=== PATIENT | female | born 1990 | race Caucasian/White ===

== ENCOUNTER 2019-08-01 19:10 | Inpatient (IN) | payer OTHER, SELFPAY ==
[2019-08-01 19:28] VITALS: BMI 28.5
--- NOTE | 2019-08-01 20:06 | PCM.HP.OB ---
- Problem List (1) demise Status: Acute (2) Multiparous Status: Acute History Date of Admission: 08/01/19 Final ERIN: 12/16/19 Gestational age: 20 Weeks and 3 Days History of this : This is a 29 year-old, G 4, P 2011, at 20 weeks gestational age who presents to labor and delivery for scheduled induction of labor for demise. She had an anatomy ultrasound 5 days ago and a demise was noted with a fetus measuring approximately 16 weeks and 4 days. No ctx, lof. +Spotting. 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 Chronic constipation K59.09 Surgical History: Surgical History (Last Updated 08/01/19 @ 20:09 by Lori Corrales DO) History of D&C Z98.890 History of section Z98.891 History of foot surgery Z98.890 History of knee surgery Z98.890 Hx of breast reduction, elective Z98.890 Allergies No Known Allergies Allergy (Verified 08/01/19 19:41) Smoking Status: Never smoker History Past Pregnancies: Past Pregnancies Delivery Date Name GA/ Weeks Outcome Route Wt Infant Sex Labor Length Anesthesia Delivery Location Provider FOB Review of Systems Gynecological: Reports: Vaginal bleeding Physical Exam General: Alert, No apparent distress HEENT: Atraumatic Abdomen: Soft, Non Tender Extremities:: No edema Neurological: Neuro grossly intact Assessment/Plan All Active Problems demise (Acute) Multiparous (Acute) This is a 29 year-old, G 4, P 2011, at 20 weeks gestational age presents for a scheduled induction of labor for demise. - TAUS confirming demise on admission - Cytotec induction - Counseling provided and all questions answered - Discussed IV pain medication or an epidural for pain control as needed per pt request
[2019-08-01] MEDS: 0.9% Normal Saline 1,000 ML 150 ML IV (20:10)
[2019-08-01 20:32] LABS: Absolute Lymphocyte Count 2.84 X10^3/uL (0.83-4.51); Absolute Neutrophil Count 7.4 X10^3/uL (2.0-7.7); Basophil# 0.03 X10^3/uL; Basophil% 0.3 % (0-1); Eosinophil# 0.14 X10^3/uL; Eosinophils% 1.3 % (0-5); Hematocrit 42.1 % (37-47); Hemoglobin 14.3 g/dL (12.0-15.0); Lymphocyte # 2.84 X10^3/ul (4.0); Lymphocyte % 25.8 % (19-41); Mean Corpuscular Hgb 31.8 pg (27.0-32.0); Mean Corpuscular Volume 93.6 fL (81-99); Mean Platelet Vol. 9.1 fl (6.2-12.0); Monocyte# 0.53 X10^3/uL; Monocyte% 4.8 % (0-10); NRBC Flagged by Analyzer 0 % (0-5); Neutrophil # 7.41 X10^3/uL (2.7-7.7); Neutrophil % 67.2 % (47-70); Platelet Count 352 K/mm3 (150-450); RBC Distribution Width CV 13.4 % (11.6-14.6); RBC Distribution Width SD 46.4 fl (35.1-43.9)
[2019-08-01] MEDS: miSOPROStol 200 MCG Tablet VAGINAL (21:32)
[2019-08-02] MEDS: miSOPROStol 200 MCG Tablet VAGINAL ×2 (01:34→05:51)
[2019-08-02] MEDS: 0.9% Normal Saline 1,000 ML 150 ML IV ×2 (01:34→07:59)
[2019-08-02] MEDS: Acetaminophen 325 MG Tablet 650 MG PO (06:00)
--- NOTE | 2019-08-02 08:06 | PCM.PN.BLA ---
Progress Note Seen at bedside evaluated. Patient reports some lower pelvic cramping. Vaginal exam was performed parts in the vagina. We will continue induction for demise at this time. Patient does not require any pain medication. Discussed with the nursing staff and with the patient that once fetus is delivered patient can hold fetus and we will await for spontaneous placental separation Pitocin will be started as soon as fetus is delivered.
[2019-08-02] MEDS: Oxytocin 30 units/NS 500 ml 30 UNITS/500 ML IV.SOLN 334 UNITS IV (09:15)
--- NOTE | 2019-08-02 09:31 | PCM.OPRPT ---
Vaginal Delivery Maternal Presentation: Medically Indicated Induction, - - demise 16+ weeks Method of Induction: Cytotec Medical Reason for Induction: demise Final ERIN: 12/16/19 Gestational age: 20 Weeks and 4 Days Date of Procedure: 08/02/19 Pre-Operative Diagnosis: demise 16+ weeks Post-Operative Diagnosis: same Surgery/ Procedure Performed: Spontaneous Vaginal Delivery Type of Anesthesia: None Description of Procedure: pt delivered without complication- pt delivered encaul. Placenta and Amniotic sac were intact. VE performed- minimal bleeding, no signs of retained POC. No lacerations appreciated. Pt reports pain well controlled. Placental Delivery Description: Spontaneous Placenta [facility]position: [facility] Estimated Blood Loss: 25 A gender: Male Episiotomy Description: None Laceration: None Medications given after delivery: IV Pitocin Complications: None
--- NOTE | 2019-08-02 09:35 | DCINST_ITS ---
Discharge Diet: No Restrictions Discharge Activity: Return to Normal Activity, May not drive while taking narcotic pain medications., May Shower May resume sexual activity in: 4 weeks Additional Activity Instructions:: Nothing in the vagina for 4-6 weeks. You may return to work/school in 6 weeks. Call your doctor if your incision/area has: Continuous Slow Oozing, Sudden Increased Bleeding, Increased Pain/ Swelling, Increased Redness, Foul Smelling Discharge Call your doctor if you observe: Fever of 101 or Higher, Using more than one pad per hour Additional Instructions: If you experience any of the following, contact your healthcare provider. * Bleeding that soaks a pad every hour for 2 hours * Fever 100.4 or higher * Unrelieved incision or abdominal pain * Swelling, redness, discharge or bleeding from your incision or episiotomy site * Your incision begins to separate * Problems urinating (including inability to urinate or burning while urinating). * Visual changes * Severe headache * Flu-like symptoms * Pain or redness in one of both of your breasts * Pain, warmth, tenderness or swelling in your legs, especially the calf area * Frequent nausea and vomiting * Symptoms of depression or anxiety If you experience any of the following, call 911 or go to the nearest Emergency Room. * Chest pain * Problems breathing * Seizure activity * Partial or complete paralysis of a body part, slurred speech, weakness or drooping of the face, or a sudden inability to walk or hold your balance Allergies/Adverse Reactions: Allergies No Known Allergies Allergy (Verified 08/01/19 19:41) Medications to take at Discharge Ibuprofen [Motrin] 600 mg PO Q6H PRN PRN #60 tab 08/02/19 The following prescriptions were given: Ibuprofen [Motrin] 600 mg PO Q6H PRN PRN #60 tab PRN Reason: Pain Or Fever Transmission Status: [id number] When: office will contact you for an appointment in 1-2 weeks. [phone] Primary Care Physician: Care Physician,No Primary [Primary Care Provider] - Test Results: Test results from this visit will be discussed in further detail at your follow- up appointment, if applicable.
--- NOTE | 2019-08-02 09:35 | PCM.DCVAG ---
Discharge Diet: No Restrictions Discharge Activity: Return to Normal Activity, May not drive while taking narcotic pain medications., May Shower May resume sexual activity in: 4 weeks Additional Activity Instructions:: Nothing in the vagina for 4-6 weeks. You may return to work/school in 6 weeks. Call your doctor if your incision/area has: Continuous Slow Oozing, Sudden Increased Bleeding, Increased Pain/ Swelling, Increased Redness, Foul Smelling Discharge Call your doctor if you observe: Fever of 101 or Higher, Using more than one pad per hour Additional Instructions: If you experience any of the following, contact your healthcare provider. Bleeding that soaks a pad every hour for 2 hours Fever 100.4 or higher Unrelieved incision or abdominal pain Swelling, redness, discharge or bleeding from your incision or episiotomy site Your incision begins to separate Problems urinating (including inability to urinate or burning while urinating). Visual changes Severe headache Flu-like symptoms Pain or redness in one of both of your breasts Pain, warmth, tenderness or swelling in your legs, especially the calf area Frequent nausea and vomiting Symptoms of depression or anxiety If you experience any of the following, call 911 or go to the nearest Emergency Room. Chest pain Problems breathing Seizure activity Partial or complete paralysis of a body part, slurred speech, weakness or drooping of the face, or a sudden inability to walk or hold your balance Allergies/Adverse Reactions: Allergies No Known Allergies Allergy (Verified 08/01/19 19:41) Medications to take at Discharge Ibuprofen [Motrin] 600 mg PO Q6H PRN PRN #60 tab 08/02/19 The following prescriptions were given: Ibuprofen [Motrin] 600 mg PO Q6H PRN PRN #60 tab PRN Reason: Pain Or Fever Transmission Status: Pending to [id number] When: office will contact you for an appointment in 1-2 weeks. [phone] Primary Care Physician: Care Physician,No Primary [Primary Care Provider] - Test Results: Test results from this visit will be discussed in further detail at your follow-up appointment, if applicable.
--- NOTE | 2019-08-02 10:26 | NURSING ---
At 0910 delivery of fetus in sac occured. Fetus remained in sac for Dr. Torres to arrive. Dr. Torres broke sac and determined fetus was a male. Fetus 84 grams, 18cm long, with head circumference of 10cm.
== END 2019-08-02 14:30 | disposition home or self-care (01) | DRG 807 ==
PROVIDERS: Admitting Provider Obstetrics & Gynecology; Visit Provider Obstetrics & Gynecology
DX: O36.4XX0 Maternal care for intrauterine death, not applicable or unspecified (principal); Z37.1 Single stillbirth; O34.219 Maternal care for unspecified type scar from previous cesarean delivery; Z3A.20 20 weeks gestation of pregnancy
CPT/HCPCS: 85025; 86850; 86900; 86901; 99218; J7030; G0378

== ENCOUNTER 2021-07-23 15:40 | Inpatient (IN) | payer OTHER, SELFPAY ==
[2021-07-23] VITALS (38 sets, daily range): BP systolic 89–142; BP diastolic 50–85; PULSE 76–121; RESP 16; TEMP 36.4–36.9; O2SAT 94–100; BMI 30.8
[2021-07-23] MEDS: Lactated Ringers 1,000 ML 200 ML IV (15:58)
[2021-07-23] MEDS: Lactated Ringers 500 ML 999 ML IV (16:00)
[2021-07-23 16:22] LABS: Absolute Lymphocyte Count 2.22 X10^3/uL (0.83-4.51); Absolute Neutrophil Count 13.4 X10^3/uL (2.0-7.7); Basophil# 0.03 X10^3/uL; Basophil% 0.2 % (0-1); Eosinophil# 0.03 X10^3/uL; Eosinophils% 0.2 % (0-5); Hematocrit 43.2 % (37-47); Hemoglobin 15.1 g/dL (12.0-15.0); Lymphocyte # 2.22 X10^3/ul (0.83-4.51); Lymphocyte % 13.4 % (19-41); Mean Corpuscular Hgb 33.6 pg (27.0-32.0); Mean Platelet Vol. 9.9 fl (6.2-12.0); Monocyte# 0.79 X10^3/uL; Monocyte% 4.8 % (0-10); NRBC Flagged by Analyzer 0 % (0-5); Neutrophil # 13.37 X10^3/uL (2.7-7.7); Platelet Count 295 K/mm3 (150-450); RBC Distribution Width CV 13.4 % (11.6-14.6); RBC Distribution Width SD 47.5 fl (35.1-43.9); White Blood Count 16.5 K/mm3 (4.4-11.0)
[2021-07-23] MEDS: fentaNYL-bupivacaine (epidural) 100 ML BAG EPIDURAL (17:05)
--- NOTE | 2021-07-23 17:53 | PCM.HP.OB ---
HPI - General General Date of Admission: 07/23/21 HPI Narrative SCOTTY JONES, is a 31 F who presents with ctxs. Maternal Data Information Final ERIN: 07/22/21 Gestational age: 40&1 PFSH PFSH Medical History (Updated 07/23/21 @ 17:[address] Ginette Saucedo MD) 40 weeks gestation of Chronic constipation Club foot depression Home Medications ibuprofen 600 mg PO Q6H PRN PRN #60 tab 08/02/19 [Rx Last Taken Unknown] Allergy/AdvReac Type Severity Reaction Status Date / Time No Known Allergies Allergy Verified 08/01/19 19:41 Surgical History (Updated 07/23/21 @ 17:[address] Ginette Saucedo MD) History of section History of D&C History of foot surgery History of knee surgery Hx of breast reduction, elective Patient desires vaginal after section () Social History Smoking Status: Never smoker History Elective abortions Hx Para 2 Spontaneous abortions Hx # Term Pregnancies Ectopic pregnancies Hx # Pregnancies Multiple births # of living children NST FHR Rate Baby A Baseline: 135 Variability:: Moderate Accelerations:: 15 x 15 Decelerations:: None Uterine Activity:: Not tracing well Vital Signs Vital Signs Vital Signs: 07/23/21 14:09 07/23/21 15:20 07/23/21 15:21 Temperature 98.1 F 97.9 F Temperature Source Temporal Temporal Pulse Rate 92 95 97 Blood Pressure 131/74 H 110/63 BP Systolic 131 110 BP Diastolic 74 63 Pulse Ox 98 96 94 07/23/21 16:22 07/23/21 16:23 07/23/21 16:50 Temperature 98.1 F Temperature Source Pulse Rate 76 96 Blood Pressure 120/75 BP Systolic 120 BP Diastolic 75 Pulse Ox 97 100 07/23/21 16:55 07/23/21 16:56 07/23/21 17:00 Temperature Temperature Source Pulse Rate 87 110 H Blood Pressure 135/85 H 134/73 H BP Systolic 135 134 BP Diastolic 85 73 Pulse Ox 100 100 07/23/21 17:05 07/23/21 17:08 07/23/21 17:10 Temperature Temperature Source Pulse Rate 121 H 112 H 116 H Blood Pressure 105/59 L 108/52 L BP Systolic 105 108 BP Diastolic 59 52 Pulse Ox 100 07/23/21 17:13 07/23/21 17:15 07/23/21 17:18 Temperature Temperature Source Pulse Rate 117 H 120 H 117 H Blood Pressure 120/67 BP Systolic 120 BP Diastolic 67 Pulse Ox 100 100 07/23/21 17:20 07/23/21 17:23 07/23/21 17:25 Temperature Temperature Source Pulse Rate 121 H 114 H 116 H Blood Pressure 114/56 L 107/56 L BP Systolic 114 107 BP Diastolic 56 56 Pulse Ox 99 07/23/21 17:28 07/23/21 17:31 Temperature Temperature Source Pulse Rate 104 H 116 H Blood Pressure 104/55 L BP Systolic 104 BP Diastolic 55 Pulse Ox 100 Weight Weight: 190 lb 14.725 oz Body Mass Index (BMI) 30.8 Physical Exam Const alert, oriented x3 and no apparent distress Chest inspection of chest normal Resp normal respiratory effort GI soft to palpation and non-tender Inspection: gravid Narrative: cvx - 3/70/-1, AROM clear fluid Labs Labs Labs: Blood Type A POSITIVE Antibody Screen NEGATIVE Hct 43.2 % (37-47) Hgb 15.1 g/dL (12.0-15.0) H Rhogam given: No See [facility] H&P Assessment & Plan (1) 40 weeks gestation of : (2) Patient desires vaginal after section (): COMMENT: 40&1 PLAN: Admit to L&D Patient desires [facility] - patient consented during and consented again today Pain - epidural GBS negative COVID negative EFW - less than 4500g, patient with adequate pelvis Routine care
[2021-07-23] MEDS: Oxytocin 30 units/NS 500 ml 30 UNITS/500 ML IV.SOLN IV (19:43)
[2021-07-23] MEDS: Oxytocin 30 units/NS 500 ml 30 UNITS/500 ML IV.SOLN 334 UNITS IV (21:21)
--- NOTE | 2021-07-23 21:38 | EX.PCM.OBRPT ---
Maternal Data Information Final ERIN: 07/22/21 Gestational age: 40&1 Vaginal Delivery Maternal Presentation Maternal Presentation: Active Labor Operative Information Date of Procedure: 07/23/21 Pre-Operative Diagnosis: Trial of labor after Post-Operative Diagnosis: Same Surgery / Procedure Performed: Spontaneous Vaginal Delivery Type of Anesthesia: Epidural Estimated Blood Loss: 250ml Findings Description of Procedure: Patient prepped & draped when C/C/+2. She pushed well to deliver the head. head gently guided to allow delivery of anterior and posterior shoulders. No excess traction placed on head. Body delivered and 3VC clamped & cut in delayed fashion. Placenta delivered with gentle traction and good uterine tone obtained. Presentation: SHARONA Amniotic Membrane Rupture Type: Artificial Amniotic Fluid Description: Clear Placental Delivery Description: Expressed Placenta Disposition: [facility] Specimen(s) Removed: Placenta Cord Vessel Description: 3 Vessels Cord Entanglement: None A Gender: Female (1 minute): 9 (5 minute): 9 Delayed Cord Clamping: Yes Post Vaginal Delivery Medications Given After Delivery: IV Pitocin Episiotomy Description: None Laceration: Cervical Extension/lac (1st degree - repaired with 3-0 vicryl) and 2nd degree (perineal repaired with 3-0 vicryl) Complication Complications: None
[2021-07-23] MEDS: Ondansetron 4 MG/2 ML Vial IV (21:47)
[2021-07-24] VITALS (10 sets, daily range): BP systolic 103–121; BP diastolic 64–76; PULSE 72–93; RESP 16–18; TEMP 36.4–36.8; O2SAT 93–95
--- NOTE | 2021-07-24 07:15 | PCM.NUR.HP ---
Subjective Subjective: 3010grams for this 40.1 week AGA BG born via to a 33yo ->3 A+ mother, HepBsag neg, RI, RPR NR, GC neg, Chl; neg, HIV NR, GBS neg, HepCab neg. Mother came in with onset of labor. She is using a shield with successful , as had problems in past. Mother had breast reduction. PCP: Vikas Objective Objective Data: 07/23/21 14:09 07/23/21 15:20 07/23/21 15:21 Temperature 98.1 F 97.9 F Temperature Source Temporal Temporal Pulse Rate 92 95 97 Respiratory Rate Blood Pressure 131/74 H 110/63 Blood Pressure [BP] Blood Pressure Mean [BP] BP Systolic 131 110 BP Diastolic 74 63 Blood Pressure Source [BP] Blood Pressure Position [BP] Blood Pressure Location [BP] Pulse Ox 98 96 94 Oxygen Delivery Method 07/23/21 16:22 07/23/21 16:23 07/23/21 16:50 Temperature 98.1 F Temperature Source Pulse Rate 76 96 Respiratory Rate Blood Pressure 120/75 Blood Pressure [BP] Blood Pressure Mean [BP] BP Systolic 120 BP Diastolic 75 Blood Pressure Source [BP] Blood Pressure Position [BP] Blood Pressure Location [BP] Pulse Ox 97 100 Oxygen Delivery Method 07/23/21 16:55 07/23/21 16:56 07/23/21 17:00 Temperature Temperature Source Pulse Rate 87 110 H Respiratory Rate Blood Pressure 135/85 H 134/73 H Blood Pressure [BP] Blood Pressure Mean [BP] BP Systolic 135 134 BP Diastolic 85 73 Blood Pressure Source [BP] Blood Pressure Position [BP] Blood Pressure Location [BP] Pulse Ox 100 100 Oxygen Delivery Method 07/23/21 17:05 07/23/21 17:08 07/23/21 17:10 Temperature Temperature Source Pulse Rate 121 H 112 H 116 H Respiratory Rate Blood Pressure 105/59 L 108/52 L Blood Pressure [BP] Blood Pressure Mean [BP] BP Systolic 105 108 BP Diastolic 59 52 Blood Pressure Source [BP] Blood Pressure Position [BP] Blood Pressure Location [BP] Pulse Ox 100 Oxygen Delivery Method 07/23/21 17:13 07/23/21 17:15 07/23/21 17:18 Temperature Temperature Source Pulse Rate 117 H 120 H 117 H Respiratory Rate Blood Pressure 120/67 Blood Pressure [BP] Blood Pressure Mean [BP] BP Systolic 120 BP Diastolic 67 Blood Pressure Source [BP] Blood Pressure Position [BP] Blood Pressure Location [BP] Pulse Ox 100 100 Oxygen Delivery Method 07/23/21 17:20 07/23/21 17:23 07/23/21 17:25 Temperature Temperature Source Pulse Rate 121 H 114 H 116 H Respiratory Rate Blood Pressure 114/56 L 107/56 L Blood Pressure [BP] Blood Pressure Mean [BP] BP Systolic 114 107 BP Diastolic 56 56 Blood Pressure Source [BP] Blood Pressure Position [BP] Blood Pressure Location [BP] Pulse Ox 99 Oxygen Delivery Method 07/23/21 17:28 07/23/21 17:31 07/23/21 18:02 Temperature Temperature Source Pulse Rate 104 H 116 H 91 Respiratory Rate Blood Pressure 104/55 L 93/52 L Blood Pressure [BP] Blood Pressure Mean [BP] BP Systolic 104 93 BP Diastolic 55 52 Blood Pressure Source [BP] Blood Pressure Position [BP] Blood Pressure Location [BP] Pulse Ox 100 99 Oxygen Delivery Method 07/23/21 18:03 07/23/21 18:32 07/23/21 18:43 Temperature 97.5 F L Temperature Source Temporal Pulse Rate 86 91 Respiratory Rate Blood Pressure 89/50 L 116/79 Blood Pressure [BP] Blood Pressure Mean [BP] BP Systolic 89 116 BP Diastolic 50 79 Blood Pressure Source [BP] Blood Pressure Position [BP] Blood Pressure Location [BP] Pulse Ox Oxygen Delivery Method 07/23/21 18:55 07/23/21 19:17 07/23/21 19:19 Temperature 97.9 F 97.7 F L 97.7 F L Temperature Source Temporal Pulse Rate Respiratory Rate Blood Pressure Blood Pressure [BP] Blood Pressure Mean [BP] BP Systolic BP Diastolic Blood Pressure Source [BP] Blood Pressure Position [BP] Blood Pressure Location [BP] Pulse Ox Oxygen Delivery Method 07/23/21 19:57 07/23/21 21:40 07/23/21 21:41 Temperature 98.5 F 98.4 F Temperature Source Temporal Pulse Rate 80 100 Respiratory Rate Blood Pressure 98/57 L 142/73 H Blood Pressure [BP] Blood Pressure Mean [BP] BP Systolic 98 142 BP Diastolic 57 73 Blood Pressure Source [BP] Blood Pressure Position [BP] Blood Pressure Location [BP] Pulse Ox Oxygen Delivery Method 07/23/21 21:54 07/23/21 22:09 07/23/21 22:24 Temperature Temperature Source Pulse Rate 88 86 85 Respiratory Rate Blood Pressure 113/71 121/67 H 127/69 H Blood Pressure [BP] Blood Pressure Mean [BP] BP Systolic 113 121 127 BP Diastolic 71 67 69 Blood Pressure Source [BP] Blood Pressure Position [BP] Blood Pressure Location [BP] Pulse Ox Oxygen Delivery Method 07/23/21 22:39 07/23/21 22:54 07/23/21 23:09 Temperature 98.0 F Temperature Source Temporal Pulse Rate 90 83 92 Respiratory Rate Blood Pressure 117/63 115/65 128/74 H Blood Pressure [BP] Blood Pressure Mean [BP] BP Systolic 117 115 128 BP Diastolic 63 65 74 Blood Pressure Source [BP] Blood Pressure Position [BP] Blood Pressure Location [BP] Pulse Ox Oxygen Delivery Method 07/23/21 23:24 07/23/21 23:40 07/24/21 03:21 Temperature 98.4 F 98.4 F 98.3 F Temperature Source Temporal Temporal Temporal Pulse Rate 90 90 87 Respiratory Rate 16 18 Blood Pressure 133/76 H 103/73 Blood Pressure [BP] 133/76 H 103/73 Blood Pressure Mean [BP] 95 83 BP Systolic 133 103 BP Diastolic 76 73 Blood Pressure Source [BP] Monitor Monitor Blood Pressure Position [BP] Semi-Fowlers Semi-Fowlers Blood Pressure Location [BP] Right Arm Right Arm Pulse Ox Oxygen Delivery Method Room Air Weight: 86.6 kg Vital Signs Temp Pulse Resp BP BP Pulse Ox 07/24/21 03:21 98.3 F 87 18 103/73 103/73 07/23/21 23:40 98.4 F 90 16 133/76 H 07/23/21 23:24 98.4 F 90 133/76 H 07/23/21 23:09 92 128/74 H 07/23/21 22:54 83 115/65 07/23/21 22:39 98.0 F 90 117/63 07/23/21 22:24 85 127/69 H 07/23/21 22:09 86 121/67 H 07/23/21 21:54 88 113/71 07/23/21 21:41 98.4 F 07/23/21 21:40 98.5 F 100 142/73 H 07/23/21 19:57 80 98/57 L 07/23/21 19:19 97.7 F L 07/23/21 19:17 97.7 F L 07/23/21 18:55 97.9 F 07/23/21 18:43 91 116/79 07/23/21 18:32 86 89/50 L 07/23/21 18:03 97.5 F L 07/23/21 18:02 91 93/52 L 99 07/23/21 17:31 116 H 104/55 L 07/23/21 17:28 104 H 100 07/23/21 17:25 116 H 107/56 L 07/23/21 17:23 114 H 99 07/23/21 17:20 121 H 114/56 L 07/23/21 17:18 117 H 100 07/23/21 17:15 120 H 120/67 07/23/21 17:13 117 H 100 07/23/21 17:10 116 H 108/52 L 07/23/21 17:08 112 H 100 07/23/21 17:05 121 H 105/59 L 07/23/21 17:00 110 H 134/73 H 100 07/23/21 16:56 87 135/85 H 07/23/21 16:55 100 07/23/21 16:50 96 100 07/23/21 16:23 76 120/75 97 07/23/21 16:22 98.1 F 07/23/21 15:21 97 94 07/23/21 15:20 97.9 F 95 110/63 96 07/23/21 14:09 98.1 F 92 131/74 H 98 Lab tests last 48H 07/23/21 07/23/21 16:00 16:00 WBC 16.5 H RBC 4.50 Hgb 15.1 H Hct 43.2 MCV 96.0 MCH 33.6 H MCHC 35.0 RDW Std Deviation 47.5 H RDW Coeff of Mikey 13.4 Plt Count 295 MPV 9.9 Immature Gran % (Auto) 0.400 Neut % (Auto) 81.0 H Lymph % (Auto) 13.4 L [place] % (Auto) 4.8 Eos % (Auto) 0.2 Baso % (Auto) 0.2 Absolute Neuts (auto) 13.4 H Absolute Lymphs (auto) 2.22 Nucleated RBC % 0 Blood Type A POSITIVE Antibody Screen NEGATIVE Micro - Preliminary and Final Results 07/23/21 16:05 SARS-CoV-2 Antigen (Rapid) - Final Nasal Secretion Delivery/Maternal Data Labor/Delivery Date of rupture of membranes: 07/23/21 Time of rupture of membranes: 17:47 Amniotic fluid color at rupture: Clear Type of delivery: Vaginal () Labor description: Spontaneous Vacuum Extraction: N/A presentation: Cephalic Complications: None Maternal Data Maternal age: 33 : 5 Para: 2 Final ERIN: 07/22/21 Blood Type:: A RH:: POSITIVE RPR/VDRL/Syphilis: Nonreactive HbSAg: Negative Hepatitis C: Negative HIV/AIDS: Non-Reactive Rubella status: Immune Gonorrhea: Negative Chlamydia: Negative Group B Strep:: Negative Gestational Diabetes: No Vital Signs Vital Signs Vital Signs: 07/23/21 14:09 07/23/21 15:20 07/23/21 15:21 Temperature 98.1 F 97.9 F Temperature Source Temporal Temporal Pulse Rate 92 95 97 Respiratory Rate Blood Pressure 131/74 H 110/63 Blood Pressure [BP] Blood Pressure Mean [BP] BP Systolic 131 110 BP Diastolic 74 63 Blood Pressure Source [BP] Blood Pressure Position [BP] Blood Pressure Location [BP] Pulse Ox 98 96 94 Oxygen Delivery Method 07/23/21 16:22 07/23/21 16:23 07/23/21 16:50 Temperature 98.1 F Temperature Source Pulse Rate 76 96 Respiratory Rate Blood Pressure 120/75 Blood Pressure [BP] Blood Pressure Mean [BP] BP Systolic 120 BP Diastolic 75 Blood Pressure Source [BP] Blood Pressure Position [BP] Blood Pressure Location [BP] Pulse Ox 97 100 Oxygen Delivery Method 07/23/21 16:55 07/23/21 16:56 07/23/21 17:00 Temperature Temperature Source Pulse Rate 87 110 H Respiratory Rate Blood Pressure 135/85 H 134/73 H Blood Pressure [BP] Blood Pressure Mean [BP] BP Systolic 135 134 BP Diastolic 85 73 Blood Pressure Source [BP] Blood Pressure Position [BP] Blood Pressure Location [BP] Pulse Ox 100 100 Oxygen Delivery Method 07/23/21 17:05 07/23/21 17:08 07/23/21 17:10 Temperature Temperature Source Pulse Rate 121 H 112 H 116 H Respiratory Rate Blood Pressure 105/59 L 108/52 L Blood Pressure [BP] Blood Pressure Mean [BP] BP Systolic 105 108 BP Diastolic 59 52 Blood Pressure Source [BP] Blood Pressure Position [BP] Blood Pressure Location [BP] Pulse Ox 100 Oxygen Delivery Method 07/23/21 17:13 07/23/21 17:15 07/23/21 17:18 Temperature Temperature Source Pulse Rate 117 H 120 H 117 H Respiratory Rate Blood Pressure 120/67 Blood Pressure [BP] Blood Pressure Mean [BP] BP Systolic 120 BP Diastolic 67 Blood Pressure Source [BP] Blood Pressure Position [BP] Blood Pressure Location [BP] Pulse Ox 100 100 Oxygen Delivery Method 07/23/21 17:20 07/23/21 17:23 07/23/21 17:25 Temperature Temperature Source Pulse Rate 121 H 114 H 116 H Respiratory Rate Blood Pressure 114/56 L 107/56 L Blood Pressure [BP] Blood Pressure Mean [BP] BP Systolic 114 107 BP Diastolic 56 56 Blood Pressure Source [BP] Blood Pressure Position [BP] Blood Pressure Location [BP] Pulse Ox 99 Oxygen Delivery Method 07/23/21 17:28 07/23/21 17:31 07/23/21 18:02 Temperature Temperature Source Pulse Rate 104 H 116 H 91 Respiratory Rate Blood Pressure 104/55 L 93/52 L Blood Pressure [BP] Blood Pressure Mean [BP] BP Systolic 104 93 BP Diastolic 55 52 Blood Pressure Source [BP] Blood Pressure Position [BP] Blood Pressure Location [BP] Pulse Ox 100 99 Oxygen Delivery Method 07/23/21 18:03 07/23/21 18:32 07/23/21 18:43 Temperature 97.5 F L Temperature Source Temporal Pulse Rate 86 91 Respiratory Rate Blood Pressure 89/50 L 116/79 Blood Pressure [BP] Blood Pressure Mean [BP] BP Systolic 89 116 BP Diastolic 50 79 Blood Pressure Source [BP] Blood Pressure Position [BP] Blood Pressure Location [BP] Pulse Ox Oxygen Delivery Method 07/23/21 18:55 07/23/21 19:17 07/23/21 19:19 Temperature 97.9 F 97.7 F L 97.7 F L Temperature Source Temporal Pulse Rate Respiratory Rate Blood Pressure Blood Pressure [BP] Blood Pressure Mean [BP] BP Systolic BP Diastolic Blood Pressure Source [BP] Blood Pressure Position [BP] Blood Pressure Location [BP] Pulse Ox Oxygen Delivery Method 07/23/21 19:57 07/23/21 21:40 07/23/21 21:41 Temperature 98.5 F 98.4 F Temperature Source Temporal Pulse Rate 80 100 Respiratory Rate Blood Pressure 98/57 L 142/73 H Blood Pressure [BP] Blood Pressure Mean [BP] BP Systolic 98 142 BP Diastolic 57 73 Blood Pressure Source [BP] Blood Pressure Position [BP] Blood Pressure Location [BP] Pulse Ox Oxygen Delivery Method 07/23/21 21:54 07/23/21 22:09 07/23/21 22:24 Temperature Temperature Source Pulse Rate 88 86 85 Respiratory Rate Blood Pressure 113/71 121/67 H 127/69 H Blood Pressure [BP] Blood Pressure Mean [BP] BP Systolic 113 121 127 BP Diastolic 71 67 69 Blood Pressure Source [BP] Blood Pressure Position [BP] Blood Pressure Location [BP] Pulse Ox Oxygen Delivery Method 07/23/21 22:39 07/23/21 22:54 07/23/21 23:09 Temperature 98.0 F Temperature Source Temporal Pulse Rate 90 83 92 Respiratory Rate Blood Pressure 117/63 115/65 128/74 H Blood Pressure [BP] Blood Pressure Mean [BP] BP Systolic 117 115 128 BP Diastolic 63 65 74 Blood Pressure Source [BP] Blood Pressure Position [BP] Blood Pressure Location [BP] Pulse Ox Oxygen Delivery Method 07/23/21 23:24 07/23/21 23:40 07/24/21 03:21 Temperature 98.4 F 98.4 F 98.3 F Temperature Source Temporal Temporal Temporal Pulse Rate 90 90 87 Respiratory Rate 16 18 Blood Pressure 133/76 H 103/73 Blood Pressure [BP] 133/76 H 103/73 Blood Pressure Mean [BP] 95 83 BP Systolic 133 103 BP Diastolic 76 73 Blood Pressure Source [BP] Monitor Monitor Blood Pressure Position [BP] Semi-Fowlers Semi-Fowlers Blood Pressure Location [BP] Right Arm Right Arm Pulse Ox Oxygen Delivery Method Room Air Weight Weight: 86.6 kg Body Mass Index (BMI) 30.8 General Weight: 86.6 kg alert, active, no apparent distress, well developed, strong cry and responsive to exam HEENT Yes normal to inspection and normocephalic Eyes: red reflex present bilaterally Ears: Yes external ears normal Nose: Yes external nose normal Oropharynx: Yes oral and palatal mucosa normal and Yes moist mucous membranes abnormal Neck Neck: full ROM and supple Respiratory Respiratory: normal respiratory effort and clear to auscultation bilaterally Cardiovascular Yes regular rate, regular rhythm, no murmurs and femoral pulses present Abdomen normal to inspection, nondistended, normoactive bowel sounds, soft to palpation, non-distended and non-tender 3 Vessels external exam normal Musculoskeletal full ROM and hip exam without evidence of dislocation or instability Neurological normal suck, rooting, and alan reflexes and muscle tone normal Skin normal color, no jaundice and no rashes or lesions noted
--- NOTE | 2021-07-24 11:44 | PCM.PN.OB ---
Subjective Subjective Doing well per patient and nursing staff. Ambulating and taking PO without difficulty. Voiding and passing flatus. Pain controlled. , services for assistance. Denies headache, visual changes, chest pain, shortness of breath, leg pain or increased bleeding. Lochia normal. Objective Data Objective Data Vital Signs: Vital Signs Temp Pulse Resp BP Pulse Ox 98.0 F 83 16 111/65 94 07/24/21 11:33 07/24/21 11:33 07/24/21 11:33 07/24/21 11:33 07/24/21 11:33 Oxygen Delivery Method Room Air Weight: 190 lb 14.725 oz Body Mass Index (BMI) 30.8 Intake & Output: Intake and Output for Last 24 Hours 07/22/21 07/23/21 07/24/21 23:59 23:59 23:59 Intake Total 1986.40 / 1986.40 Output Total 300 / 300 1580 / 1580 Balance 1687.40 / 1687.40 -1580 / -1580 Lab / Micro Data Result Diagrams: 07/23/21 16:00 Labs: Laboratory Results - last 24 hr 07/23/21 16:00: WBC 16.5 H, RBC 4.50, Hgb 15.1 H, Hct 43.2, MCV 96.0, MCH 33.6 H, MCHC 35.0, RDW Std Deviation 47.5 H, RDW Coeff of Mikey 13.4, Plt Count 295, MPV 9.9, Immature Gran % (Auto) 0.400, Neut % (Auto) 81.0 H, Lymph % (Auto) 13.4 L, [place] % (Auto) 4.8, Eos % (Auto) 0.2, Baso % (Auto) 0.2, Absolute Neuts (auto) 13.4 H, Absolute Lymphs (auto) 2.22, Nucleated RBC % 0 07/23/21 16:00: Blood Type A POSITIVE, Antibody Screen NEGATIVE Micro: Microbiology 07/23/21 16:05 Nasal Secretion SARS-CoV-2 Antigen (Rapid) - Final ROS Constitutional Constitutional: Reports systems reviewed and no addt'l complaints, except as documented; Denies headache(s) Eyes Eyes: Denies acute decrease in peripheral vision, blurry vision or change in vision ENT HEENT: Reports systems reviewed and no addt'l complaints, except as documented Cardiovascular Cardiovascular: Denies chest pain or dizziness Respiratory/Chest Respiratory/Chest: Denies cough, dyspnea, dyspnea on exertion, shortness of breath at rest or shortness of breath with exertion Gastrointestinal Gastrointestinal: Denies abdominal pain, diarrhea, nausea or vomiting Genitourinary Genitourinary: Denies abdominal discomfort Musculoskeletal Musculoskeletal: Denies limited range of motion Integumentary Integumentary: Reports systems reviewed and no addt'l complaints, except as documented Neurologic Neurologic: Reports systems reviewed and no addt'l complaints, except as documented Psychiatric Psychiatric: Reports systems reviewed and no addt'l complaints, except as documented Endocrine Endocrinology: Reports systems reviewed and no addt'l complaints, except as documented Hematologic/Lymphatic Hematologic/Lymphatic: Reports systems reviewed and no addt'l complaints, except as documented Allergic/Immunologic Allergic/Immunologic: Reports systems reviewed and no addt'l complaints, except as documented Physical Exam Const alert and oriented x3 General Appearance: cooperative Orientation / Consciousness: awake, oriented to person, oriented to place and oriented to time Exam Limitations: no limitations HEENT normocephalic Head and Scalp: normal to inspection, normocephalic and atraumatic Face and Sinus: normal facial exam Eyes General Eye: normal appearance of both eyes Neck full ROM Chest Chest: symmetrical chest wall rise Resp normal respiratory effort and normal air movement Auscultation: clear to auscultation bilaterally Cardio regular rate, regular rhythm, S1 normal heart sound, S2 normal heart sound, no murmurs, no rub, no gallops and no clicks GI normal to inspection, nondistended, normoactive bowel sounds and non-tender GI Narrative: Fundus above U and displaced to right side appearance of the vagina normal Bladder / Kidney Exam: no CVA tenderness Back/Spine normal ROM Extremity normal to inspection and full ROM Extremity Narrative: Suzie's negative bilaterally. +1 Bilateral pitting edema Skin no rashes or lesions noted Neuro oriented x3, CN's II-XII intact bilaterally and moves all extremities Sensorium / Orientation: awake, alert and oriented to person Motor Exam: clonus absent Deep Tendon Reflexes: Rt Patellar (L4): 2+ and Lt Patellar (L4): 2+ Assessment & Plan (1) (vaginal after ): PLAN: 1) Routine PP and care 2) Vitals stable 3) Pain management 4) Hgb stable 5) D/C home tomorrow
[2021-07-25 01:28] VITALS: BP 121/68; PULSE 70; RESP 18; TEMP 36.4
[2021-07-25 01:29] VITALS: TEMP 36.4
[2021-07-25 01:30] VITALS: BP 121/68; PULSE 70
[2021-07-25 07:46] VITALS: BP 121/75; PULSE 68; RESP 16; TEMP 36.3
--- NOTE | 2021-07-25 10:00 | PCM.PN.OB ---
Subjective Subjective Doing well per patient and nursing staff. Ambulating and taking PO without difficulty. Voiding and passing flatus. Pain controlled. , services for assistance. Denies headache, visual changes, chest pain, shortness of breath, leg pain or increased bleeding. Lochia normal. Objective Data Objective Data Vital Signs: Vital Signs Temp Pulse Resp BP Pulse Ox 97.4 F L 68 16 121/75 H 94 07/25/21 07:46 07/25/21 07:46 07/25/21 07:46 07/25/21 07:46 07/24/21 16:21 Oxygen Delivery Method Room Air Weight: 190 lb 14.725 oz Body Mass Index (BMI) 30.8 Intake & Output: Intake and Output for Last 24 Hours 07/23/21 07/24/21 07/25/21 23:59 23:59 23:59 Intake Total 1986.40 / 40 Output Total 300 / 300 2180 / 2180 Balance 1687.40 / 1687.40 -2180 / -2180 Lab / Micro Data Result Diagrams: 07/23/21 16:00 Micro: Microbiology 07/23/21 16:05 Nasal Secretion SARS-CoV-2 Antigen (Rapid) - Final ROS Constitutional Constitutional: Reports systems reviewed and no addt'l complaints, except as documented; Denies headache(s) Eyes Eyes: Denies acute decrease in peripheral vision, blurry vision or change in vision ENT HEENT: Reports systems reviewed and no addt'l complaints, except as documented Cardiovascular Cardiovascular: Denies chest pain or dizziness Respiratory/Chest Respiratory/Chest: Denies cough, dyspnea, dyspnea on exertion, shortness of breath at rest or shortness of breath with exertion Gastrointestinal Gastrointestinal: Denies abdominal pain, diarrhea, nausea or vomiting Genitourinary Genitourinary: Denies abdominal discomfort Musculoskeletal Musculoskeletal: Denies limited range of motion Integumentary Integumentary: Reports systems reviewed and no addt'l complaints, except as documented Neurologic Neurologic: Reports systems reviewed and no addt'l complaints, except as documented Psychiatric Psychiatric: Reports systems reviewed and no addt'l complaints, except as documented Endocrine Endocrinology: Reports systems reviewed and no addt'l complaints, except as documented Hematologic/Lymphatic Hematologic/Lymphatic: Reports systems reviewed and no addt'l complaints, except as documented Allergic/Immunologic Allergic/Immunologic: Reports systems reviewed and no addt'l complaints, except as documented Physical Exam Const alert and oriented x3 General Appearance: cooperative Orientation / Consciousness: awake, oriented to person, oriented to place and oriented to time Exam Limitations: no limitations HEENT normocephalic Head and Scalp: normal to inspection, normocephalic and atraumatic Face and Sinus: normal facial exam Eyes General Eye: normal appearance of both eyes Neck full ROM Chest Chest: symmetrical chest wall rise Resp normal respiratory effort and normal air movement Auscultation: clear to auscultation bilaterally Cardio regular rate, regular rhythm, S1 normal heart sound, S2 normal heart sound, no murmurs, no rub, no gallops and no clicks GI normal to inspection, nondistended, normoactive bowel sounds and non-tender appearance of the vagina normal Bladder / Kidney Exam: no CVA tenderness Back/Spine normal ROM Extremity normal to inspection and full ROM Skin no rashes or lesions noted Neuro oriented x3, CN's II-XII intact bilaterally and moves all extremities Sensorium / Orientation: awake, alert and oriented to person Motor Exam: clonus absent Deep Tendon Reflexes: Rt Patellar (L4): 2+ and Lt Patellar (L4): 2+ Assessment & Plan (1) (vaginal after ): PLAN: 1)Routine PP care and instructions 2)Vitals stable 3)Pain management 4)D/C home today 5)Follow up in 2 weeks and 6 weeks
--- NOTE | 2021-07-25 10:02 | PCM.DC.SUM ---
Providers Date of Admission: 07/23/21 Primary Care Physician: Marichuy Primary Care Phys Reason For Visit: LABOR AND DELIVERY Diagnosis Discharge Diagnosis (1) (vaginal after ): Status: Acute Code(s): O34.219 - Maternal care for unspecified type scar from previous delivery Medications at Discharge Home Medications acetaminophen 1,000 mg PO Q6H PRN PRN #0 tab 07/25/21 benzocaine-menthol [Dermoplast (with menthol)] 1 spray TOPICAL TID PRN PRN #0 g 07/25/21 ibuprofen 600 mg PO Q6H PRN PRN #30 tab 07/25/21 Weight / BMI Weight Weight: 190 lb 14.725 oz Body Mass Index (BMI) 30.8 ABG / Lab / Microbiology Data Result Diagrams: 07/23/21 16:00 Microbiology: Microbiology 07/23/21 16:05 Nasal Secretion SARS-CoV-2 Antigen (Rapid) - Final Meaningful Use Info Meaningful Use Diagnoses (Choose all that apply): None applicable Discharge Plan Admission Admit Date/Time: 07/23/21 15:40 Primary Reason for Your Visit: Vaginal Delivery Attending Provider: Ginette Saucedo Primary Care Provider: Care Physician,No Primary Instructions Patient Instructions: After a Vaginal , Vaginal After , Discharge Orders/Prescriptions Prescriptions: New acetaminophen 500 mg Tablet 1,000 mg PO Q6H PRN PRN (Reason: Pain 1-10 Or Fever) Qty: 0 RF: 0 Dermoplast (with menthol) 20-0.5 % Aerosol 1 spray topical TID PRN PRN (Reason: perineal discomfort) Qty: 0 RF: 0 ibuprofen 600 mg Tablet 600 mg PO Q6H PRN PRN (Reason: Pain Score 1-3) Qty: 30 RF: 0 Discontinued ibuprofen 600 MG tablet 600 mg PO Q6H PRN PRN (Reason: Pain Or Fever) Qty: 60 RF: 0 Referrals / Follow Up: Care Physician,No Primary [Primary Care Provider] - (Follow up with provider at [facility] in 2 weeks for virtual visit and 6 weeks. ) Disposition Disposition (needs filled in before D/C Order can be placed): Home, Self Care
--- NOTE | 2021-07-29 13:24 | NURSING ---
Mother was sick yesterday but better today on the follow up phone call. Recommended to call PCP if not better. Mother drives from an hour away just to deliver here because she feels so supported.
== END 2021-07-25 11:33 | disposition home or self-care (01) | DRG 807 ==
LOC: WP 15:48 → WPOUT 07-27 14:07
PROVIDERS: Admitting Provider Obstetrics & Gynecology; Visit Provider Obstetrics & Gynecology
DX: O70.1 Second degree perineal laceration during delivery (principal); Z37.0 Single live birth; O34.219 Maternal care for unspecified type scar from previous cesarean delivery; O70.0 First degree perineal laceration during delivery; Z3A.40 40 weeks gestation of pregnancy
CPT/HCPCS: 59025; 59050; 85025; 86850; 86900; 86901; 87426; 99218; J7120; G0378; J2405

== ENCOUNTER 2021-07-30 18:16 | Inpatient (IN) | payer OTHER, SELFPAY ==
[2021-07-30 18:17] VITALS: BP 136/88; PULSE 127; RESP 16; TEMP 37.1; O2SAT 93; BMI 28.0
--- NOTE | 2021-07-30 18:55 | EDS_ITS ---
HPI HPI - Female History of Present Illness Chief Complaint: Complaint Informant: patient Narrative Narrative: 31-year-old female recently had a vaginal delivery on last was discharged on Tuesday. She had spinal anesthetic. Prior to leaving the hospital she was able to urinate. Said she started feeling ill on Tuesday with chills and a cough. Mild nausea vomiting. Adams better on Tuesday morning and then started feeling ill again Tuesday evening. Yesterday she was having trouble urinating and today and last evening she was unable to urinate. She is never had problems like this before. She denies any numbness or weakness in her lower extremities. She has no significant past medical history. Prior similar symptoms: No Recent Illness/Hospitalization: Yes PFSH PFSH Medical History no medical history no medical history Allergy/AdvReac Type Severity Reaction Status Date / Time No Known Allergies Allergy Verified 07/30/21 18:17 Social History Smoking Status: Never smoker ROS ROS ED ROS Narrative Chills, nausea and vomiting, cough. Urinary retention. Review of Systems ROS Unobtainable: Denies due to encephalopathy Constitutional Constitutional ED: Reports chills; Denies fever(s) or subjective Eyes Eyes: Denies change in vision ENT ENT ED: Denies ear pain, rhinorrhea or sore throat Cardiovascular Cardiovascular: Denies chest pain or palpitations Respiratory/Chest Respiratory/Chest: Reports cough; Denies dyspnea Gastrointestinal Gastrointestinal: Reports nausea and vomiting; Denies abdominal pain or diarrhea Genitourinary Genitourinary ED: Denies dysuria or hematuria Musculoskeletal Musculoskeletal: Reports myalgias Integumentary Denies rash Neurologic Neurologic: Denies headache(s) Psychiatric Psychiatric: Denies depression Endocrine Endocrinology: Denies polyuria Hematologic/Lymphatic Hematologic/Lymphatic: Denies easy bruising Allergic/Immunologic Allergic/Immunologic ED: Denies urticaria EXAM Physical Exam Narrative Exam Narrative: 31-year-old female no acute distress. Vital signs stable. Initial blood pressure 136/88. Pulse ox 93% on room air no hypoxia. She does not look septic or toxic. Her current temperature is 98.7. She does not look dehydrated. HEENT exam unremarkable. Moist remembrance. Neck nontender. No lymphadenopathy. No meningismus. Lungs good auscultation bilaterally. Heart tachycardic rate about 120 no murmur. Abdomen soft nontender normal bowel sounds no peritoneal signs. Patient moving all 4 extremities. Neurovascular intact. Calves are nontender without edema. Back nontender. Neurologically she is awake and alert with no focal motor deficits. No sensory deficits. No cauda equina. No saddle anesthesia. Normal 5 out of 5 dorsi plantarflexion of both feet. She can lift either leg off the bed. Const Vital Signs: 07/30/21 18:17 07/30/21 21:34 Temperature 98.7 F Temperature Source Temporal Pulse Rate 127 H 93 Respiratory Rate 16 14 Blood Pressure 136/88 H 128/74 H Blood Pressure Mean 104 92 Pulse Ox 93 99 Oxygen Delivery Method Room Air Room Air Positive well nourished and well developed; Negative for obese, cachectic, contractures or unkempt General Appearance ED: well developed; Negative for unkempt, cachectic, contractures or pallor Nutritional Appearance: Negative for cachectic or obese HEENT Reports moist mucous membranes Negative for trauma or tenderness Eyes PERRL and EOMs intact bilaterally Neck no lymphadenopathy, supple and no JVD Thyroid: Negative for tender Chest Wall inspection of chest normal and palpation of chest normal Resp normal respiratory effort and clear to auscultation bilaterally Effort and Inspection: Negative for pain with movement Auscultation: Negative for rales, rhonchi or wheezes Cardio regular rhythm, S1 normal heart sound, no murmurs and no JVD; Negative for regular rate Rate: tachycardic GI normal to inspection, nondistended, normoactive bowel sounds, soft to palpation, non-tender, non-distended and no masses Auscultation: normoactive bowel sounds; Negative for hypoactive bowel sounds Palpation: Negative for tender, guarding or rigid no CVA tenderness Back/Spine no CVA tenderness General Back: Negative for CVA tenderness Extremity normal to inspection and full ROM General Extremety ED: Negative for edema or tenderness General Extremity: Negative for edema Neuro oriented x3, CN's II-XII intact bilaterally and no sensory deficits noted Sensorium / Orientation: alert, oriented to person, oriented to place and oriented to time; Negative for confused, lethargic or stuporous Motor Exam: strength 5/5 throughout; Negative for general weakness or strength abnormal Psych mental status grossly normal Appearance: Negative for unkempt Mood & Affect: Negative for depressed or tearful Skin no rashes or lesions noted and no wounds General Skin Exam: Negative for jaundice or pallor MDM MDM MDM Narrative Medical decision making narrative: 31-year-old female status post vaginal delivery who is now complaining of difficulty urinating with chills. Differential diagnosis would include possible UTI versus urinary retention versus a infection. This could also be respiratory in nature we will ensure she does not have a pneumonia or COVID. This could also be viral in etiology. Screening labs and chest x-ray will be obtained. I did do a pelvic exam on the patient. She has enlarged boggy tender uterus. Foul-smelling purulent vaginal discharge with really no active bleeding on speculum exam. Exam is consistent with retained products of conception with a endometritis. Ultrasound is currently pending. I discussed this with the patient and her significant other. I spoken to the [facility] NETWORK OPERATIONS MANAGER on-call. Patient be started on IV antibiotics. NETWORK OPERATIONS MANAGER will follow the ultrasound results. They did not think that would change her clinical course this evening. Patient was started on IV clindamycin. OB may choose to add gentamicin also. Lab Data Attestation: I reviewed the patient's lab results. Lab results narrative: Urinalysis shows blood but no infection. Rapid COVID antigen negative. Bladder scan showed possible urinary retention. However that did not correlate with the Kirby catheter getting no return in the bladder. I think the bladder scan was an erroneous read. Therefore CAT scan was obtained. Electrolytes are unremarkable sodium 134 gap of 7 normal BUN and creatinine. Glucose of 120. Labs: Laboratory Results - last 24 hr 07/30/21 07/30/21 07/30/21 19:05 20:41 20:41 WBC 17.4 H RBC 4.36 Hgb 14.2 Hct 41.3 MCV 94.7 MCH 32.6 H MCHC 34.4 RDW Std Deviation 46.5 H RDW Coeff of Mikey 13.2 Plt Count 307 MPV 9.4 Immature Gran % (Auto) 0.900 Neut % (Auto) 77.9 H Lymph % (Auto) 13.1 L [place] % (Auto) 7.5 Eos % (Auto) 0.1 Baso % (Auto) 0.5 Absolute Neuts (auto) 13.5 H Absolute Lymphs (auto) 2.27 Nucleated RBC % 0 Sodium 134 L Potassium 3.7 Chloride 103 Carbon Dioxide 24.0 Anion Gap 7 BUN 9 Creatinine 0.76 Estim Creat Clear Calc 98.56 Est GFR (MDRD) Af Amer 112 Est GFR (MDRD) Non-Af 92 BUN/Creatinine Ratio 11.8 Glucose 120 H Calcium 8.7 Urine Color Yellow Urine Clarity Sl. Cloudy Urine pH 6.0 Ur Specific [place] 1.015 Urine Protein 30 H Urine Glucose (UA) Normal Urine Ketones 5 H Urine Occult Blood 250 H Urine Nitrite Negative Urine Bilirubin Negative Urine Urobilinogen 1 H Ur Leukocyte Esterase 25 H Urine RBC 10-25 SEEN Urine WBC 0-5 SEEN Ur Squamous Epith Cells 0-5 SEEN Amorphous Sediment 1+ URATE Urine Bacteria 0 SEEN Urine Mucus 0 SEEN Radiography Diagnostic Testing: Clinical Impression(s) from Imaging Studies Chest X-Ray 07/30/21 19:09 IMPRESSION: Normal x-ray examination of the chest. Electronically Signed: Patrick Flores MD at 20:17 EST , Service support , Abdomen/Pelvis CT 07/30/21 20:26 IMPRESSION: 1. Moderate circumferential thickening of the myometrium with enhancement and slight heterogeneity and moderate endometrial clotted hemorrhage and fluid are expected /recent delivery changes, although there could be some degree of retained products. An ultrasound can be obtained if there is concern for retained placental components or secondary endometritis. 2. Normal bilateral ovaries. 3. No free air or free fluid is present in the abdomen or pelvis. Electronically Signed: Patrick Flores MD at 22:19 EST , Service support , Chest x-ray, portable, single view interpreted by myself and the radiologist shows no acute abnormality. Discharge Plan Dx/Rx/DC Orders Clinical Impression: Products of conception, retention, Leukocytosis, Acute endometritis Disposition Disposition: [facility]
--- NOTE | 2021-07-30 19:09 | RAD_ITS ---
STUDY: X-RAY CHEST REASON FOR EXAM: Female, 31 years old. cough TECHNIQUE: Single AP portable view of the chest. COMPARISON: None. FINDINGS: The lungs are clear and expanded. There is no demonstrated pleural abnormality. Normal size heart. Normal mediastinum and josefina. Normal visualized pulmonary arteries. Normal visualized aortic arch and descending thoracic aorta. Normal visualized thoracic spine. Normal visualized ribs, clavicles, and shoulders. There is no demonstrated abnormality of the visualized soft tissue structures of the upper abdomen. RAD/Chest 1 View (Portable) IMPRESSION: Normal x-ray examination of the chest. Electronically Signed: Patrick Flores MD at 20:17 EST , Service support ,
[2021-07-30 19:17] LABS: Bacteria 0 SEEN /hpf (None Seen); Mucous, Urine 0 SEEN /hpf (<or=2+)
[2021-07-30 19:52] LABS: Color, Urine Yellow (Yellow); Glucose, Dipstick Normal (Normal); Ketone-Dipstick 5 mg/dl (Negative); Leukocyte Esterase-Dipstick 25 /ul (Negative); Nitrite-Dipstick Negative (Negative); Occult Blood-Urine 250 /ul (Negative); Protein-Dipstick 30 mg/dl (Negative); Specific Gravity, Urine 1.015 (1.002-1.030); Urine Bilirubin Dipstick Negative (Negative); Urine Clarity Sl. Cloudy (Clear); Urine Urobilinogen 1 mg/dl (Normal)
[2021-07-30 20:01] LABS: Amorphous Sediment 1+ URATE; Red Blood Cells-Urine 10-25 SEEN /hpf (0-5); Squamous Epithelial Cells - UA 0-5 SEEN /hpf (5-10); White Blood Cells 0-5 SEEN /hpf (0-5)
--- NOTE | 2021-07-30 20:04 | ED.RN ---
Patient's werner was irrigated with 200ml fluid, 200ml fluid returned without resistance.
--- NOTE | 2021-07-30 20:26 | CT_ITS ---
STUDY: CT ABDOMEN AND PELVIS WITH CONTRAST REASON FOR EXAM: Female, 31 years old. 1 WEEK POST VAGINAL DELIVERY,DYSURIA STARTED TUESDAY HX: RADIATION DOSAGE (If Supplied By Facility): CTDIvol = ( 12.84 ) mGy, DLP = ( 1289.09 ) mGycm TECHNIQUE: Transaxial images were obtained from the dome of the diaphragm to the symphysis pubis without oral contrast. IV 100mL Isovue-370 was administered. Sagittal and coronal images were reconstructed. Individualized dose optimization techniques were used for this CT. COMPARISON: None. FINDINGS: The visualized lung bases are unremarkable. The visualized portions of the heart are within normal limits. Normal liver. Normal gallbladder and extrahepatic biliary system. Normal spleen. Normal pancreas. Normal bilateral adrenal glands. Normal right kidney. Normal left kidney. Normal visualized stomach. Normal small intestine. Normal colon. The appendix is visualized and appears normal. Normal abdominal aorta. Normal inferior vena cava. Normal retroperitoneum. The bladder is not fluid distended and is collapsed around a catheter and balloon. Small amount of air in the bladder lumen related to the catheter. Moderate circumferential thickening of the myometrium with enhancement and slight heterogeneity and moderate endometrial clotted hemorrhage and fluid are expected /recent delivery changes, although there could be some degree of retained products. An ultrasound can be obtained if there is concern for retained placental components or secondary endometritis. Normal bilateral ovaries. No free air or free fluid is present in the abdomen or pelvis. Normal abdominal wall. Normal osseous structures. CT/Abdomen/Pelvis W IV Cont ONLY IMPRESSION: 1. Moderate circumferential thickening of the myometrium with enhancement and slight heterogeneity and moderate endometrial clotted hemorrhage and fluid are expected /recent delivery changes, although there could be some degree of retained products. An ultrasound can be obtained if there is concern for retained placental components or secondary endometritis. 2. Normal bilateral ovaries. 3. No free air or free fluid is present in the abdomen or pelvis. Electronically Signed: Patrick Flores MD at 22:19 EST , Service support ,
[2021-07-30 20:48] LABS: Absolute Lymphocyte Count 2.27 X10^3/uL (0.83-4.51); Absolute Neutrophil Count 13.5 X10^3/uL (2.0-7.7); Basophil# 0.09 X10^3/uL; Basophil% 0.5 % (0-1); Eosinophil# 0.02 X10^3/uL; Eosinophils% 0.1 % (0-5); Hematocrit 41.3 % (37-47); Hemoglobin 14.2 g/dL (12.0-15.0); Lymphocyte # 2.27 X10^3/ul (0.83-4.51); Lymphocyte % 13.1 % (19-41); Mean Corp Hgb Conc 34.4 g/dL (32-36); Mean Corpuscular Hgb 32.6 pg (27.0-32.0); Mean Corpuscular Volume 94.7 fL (81-99); Mean Platelet Vol. 9.4 fl (6.2-12.0); Monocyte# 1.31 X10^3/uL; Monocyte% 7.5 % (0-10); NRBC Flagged by Analyzer 0 % (0-5); Neutrophil # 13.52 X10^3/uL (2.7-7.7); Neutrophil % 77.9 % (47-70); Platelet Count 307 K/mm3 (150-450); RBC Distribution Width CV 13.2 % (11.6-14.6); RBC Distribution Width SD 46.5 fl (35.1-43.9); Red Blood Count 4.36 M/mm3 (4.2-5.4); White Blood Count 17.4 K/mm3 (4.4-11.0)
[2021-07-30 21:02] LABS: Anion Gap 7 (5-15); BUN 9 mg/dL (7-18); BUN/Creat Ratio 11.8 RATIO (10-20); Calcium,Total 8.7 mg/dL (8.5-10.1); Chloride 103 mmol/L (98-107); Creatinine, Serum 0.76 mg/dL (0.55-1.02); EST Glomerular Filtration Rate 92 mL/min (>60); Est Glom Filt Rate - Afr Amer 112 mL/min (>60); Estimated Creatinine Clearance 98.56 ml/min; Glucose 120 mg/dL (74-106); Potassium 3.7 mmol/L (3.5-5.1); Sodium Level 134 mmol/L (136-145)
[2021-07-30 21:34] VITALS: BP 128/74; PULSE 93; RESP 14; O2SAT 99
--- NOTE | 2021-07-30 22:57 | US_ITS ---
STUDY: ULTRASOUND TRANSVAGINAL CLINICAL: Female, 31 years old. posisble retained products of conception -- possible retained products of conception TECHNIQUE: Transvaginal COMPARISON: None. FINDINGS: Enlarged uterus with thickened endometrium at 17 mm. Uterus measures 16 x 11 x 2.2 cm No significantly increased vascularity in the endometrium. On likely retained products of conception. Normal appearance of the ovaries. No concerning pelvic free fluid. US/Pelvic (Non ) IMPRESSION: Enlarged uterus with heterogeneous and thickened endometrium however, no significantly increased vascularity. Unlikely to represent retained products of conception Electronically Signed: Deonte Pace DO at 23:44 EST Tel , Service support ,
[2021-07-30 23:47] VITALS: BP 138/77; PULSE 101; RESP 13; TEMP 37.7; O2SAT 95
[2021-07-31 00:28] VITALS: BMI 27.6
[2021-07-31 00:42] VITALS: BP 121/72; PULSE 97; RESP 18; TEMP 38.7; O2SAT 95
[2021-07-31] MEDS: 0.9% Normal Saline 1,000 ML 125 ML IV ×3 (01:00→20:46)
[2021-07-31 05:00] VITALS: BP 127/84; PULSE 86; RESP 16; TEMP 39.2; O2SAT 96
[2021-07-31] MEDS: Ibuprofen 600 MG Tablet PO (05:30)
[2021-07-31 07:58] VITALS: BP 110/74; PULSE 87; RESP 16; TEMP 36.4; O2SAT 95
--- NOTE | 2021-07-31 08:09 | HP.PCM.OB_ITS ---
HPI - General General Date of Admission: 07/31/21 HPI Narrative SCOTTY JONES, is a 31 F who presented to the ER from with fevers, chills, cough, inability to void, RLQ pelvic pain. She says at home she felt feverish and chills. She had a few episodes of emesis. She has been coughing but no congestion, rhinorrhea, sore throat, SOB, CP. She had a COHEN one day which has resolved. No known sick contacts. She is pumping and having some difficulty with . No breast complaints. Denies dysuria, leg pain as well. Lochia has been normal. PFSH PFSH Medical History no medical history Home Medications PNV w/o vit A-Fe [id number] [ [place]] 1 cap PO DAILY 07/30/21 [History Last Taken Unknown] Allergy/AdvReac Type Severity Reaction Status Date / Time No Known Allergies Allergy Verified 07/30/21 18:17 Social History Smoking Status: Never smoker ROS ROS Narrative See HPI Vital Signs Vital Signs Vital Signs: 07/30/21 18:17 07/30/21 21:34 07/30/21 23:47 Temperature 98.7 F 99.8 F H Temperature Source Temporal Temporal Pulse Rate 127 H 93 101 H Respiratory Rate 16 14 13 Respiratory Effort Respiratory Depth Respiratory Pattern Blood Pressure 136/88 H 128/74 H 138/77 H Blood Pressure Mean 104 92 97 Blood Pressure Source Blood Pressure Position Blood Pressure Location Pulse Ox 93 99 95 Oxygen Delivery Method Room Air Room Air Room Air 07/31/21 00:42 07/31/21 00:50 07/31/21 05:00 Temperature 101.6 F H 102.6 F H Temperature Source Oral Oral Pulse Rate 97 86 Respiratory Rate 18 16 Respiratory Effort Normal Non-Labored Respiratory Depth Normal Respiratory Pattern Normal Blood Pressure 121/72 H 127/84 H Blood Pressure Mean 88 98 Blood Pressure Source Monitor Monitor Blood Pressure Position Semi-Fowlers Semi-Fowlers Blood Pressure Location Right Arm Right Arm Pulse Ox 95 96 Oxygen Delivery Method Room Air Room Air Room Air 07/31/21 07:58 Temperature 97.5 F L Temperature Source Oral Pulse Rate 87 Respiratory Rate 16 Respiratory Effort Respiratory Depth Respiratory Pattern Blood Pressure 110/74 Blood Pressure Mean 86 Blood Pressure Source Monitor Blood Pressure Position Semi-Fowlers Blood Pressure Location Right Arm Pulse Ox 95 Oxygen Delivery Method Room Air Weight Weight: 171 lb 8.314 oz Body Mass Index (BMI) 27.6 Physical Exam Const alert and no apparent distress General Appearance: comfortable HEENT normocephalic Chest Breast/Axilla Inspection: other Other Details: Normal breast exam Nipple/Areola: nipples/areola normal Resp normal respiratory effort GI soft to palpation and non-distended GI Narrative: +Uterine tenderness Extremity normal to inspection and no calf tenderness Labs Labs Labs: Hct 41.3 % (37-47) Hgb 14.2 g/dL (12.0-15.0) Assessment & Plan (1) Leukocytosis: PLAN: WBC 17 in ER with HR in 120's upon presentation. Tachycardia improved. Repeat WBC this morning. Patient presentation is not straight forward but given uterine tenderness will treat as endometritis at this time, as there is no other evidence for infection. Will consider Covid PCR and Flu swab, and discuss further with provider sales commissions analyst today (2) Acute endometritis: PLAN: IV antibiotics and IVF hydration. Continue to monitor inpatient given fever 102 this AM (3) Fever: PLAN: CXR and CTAP unremarkable. Pelvic US shows unlikely retained POC's (4) state: PLAN: Lochia normal. Routine care (5) , delivered: (6) Lactating mother: PLAN: Has pump at bedside. Will have see if possible today
[2021-07-31 08:47] LABS: Absolute Lymphocyte Count 2.12 X10^3/uL (0.83-4.51); Absolute Neutrophil Count 13.4 X10^3/uL (2.0-7.7); Basophil# 0.09 X10^3/uL; Basophil% 0.5 % (0-1); Eosinophil# 0.03 X10^3/uL; Eosinophils% 0.2 % (0-5); Hemoglobin 14.6 g/dL (12.0-15.0); Lymphocyte # 2.12 X10^3/ul (0.83-4.51); Lymphocyte % 12.4 % (19-41); Mean Corp Hgb Conc 34.8 g/dL (32-36); Mean Platelet Vol. 9.5 fl (6.2-12.0); Monocyte# 1.31 X10^3/uL; Monocyte% 7.7 % (0-10); NRBC Flagged by Analyzer 0 % (0-5); Neutrophil # 13.36 X10^3/uL (2.7-7.7); Platelet Count 303 K/mm3 (150-450); RBC Distribution Width CV 13.3 % (11.6-14.6); RBC Distribution Width SD 46.6 fl (35.1-43.9); Red Blood Count 4.42 M/mm3 (4.2-5.4); White Blood Count 17.1 K/mm3 (4.4-11.0)
[2021-07-31 09:06] LABS: Anion Gap 8 (5-15); BUN 10 mg/dL (7-18); BUN/Creat Ratio 14.1 RATIO (10-20); Calcium,Total 8.6 mg/dL (8.5-10.1); Chloride 104 mmol/L (98-107); Creatinine, Serum 0.71 mg/dL (0.55-1.02); EST Glomerular Filtration Rate 101 mL/min (>60); Est Glom Filt Rate - Afr Amer 122 mL/min (>60); Glucose 100 mg/dL (74-106); Potassium 3.3 mmol/L (3.5-5.1); Sodium Level 136 mmol/L (136-145)
[2021-07-31 14:30] VITALS: BP 111/80; PULSE 88; RESP 16; TEMP 36.5; O2SAT 96
[2021-07-31 21:00] VITALS: BP 106/67; PULSE 86; RESP 16; TEMP 36.4; O2SAT 96
--- NOTE | 2021-08-01 00:26 | PCS.PANDOC ---
PANDEMIC DOCUMENTATION INITIATED: Date: 07/31/2021 Time: 1900
[2021-08-01 02:20] VITALS: BP 113/87; PULSE 80; RESP 16; TEMP 36.4; O2SAT 98
[2021-08-01 05:57] LABS: Absolute Lymphocyte Count 2.75 X10^3/uL (0.83-4.51); Absolute Neutrophil Count 9.8 X10^3/uL (2.0-7.7); Basophil# 0.08 X10^3/uL; Basophil% 0.6 % (0-1); Eosinophil# 0.27 X10^3/uL; Hematocrit 47.9 % (37-47); Hemoglobin 16.2 g/dL (12.0-15.0); Lymphocyte # 2.75 X10^3/ul (0.83-4.51); Mean Corp Hgb Conc 33.8 g/dL (32-36); Mean Corpuscular Hgb 32.7 pg (27.0-32.0); Mean Corpuscular Volume 96.8 fL (81-99); Mean Platelet Vol. 9.4 fl (6.2-12.0); Monocyte# 0.72 X10^3/uL; Monocyte% 5.2 % (0-10); NRBC Flagged by Analyzer 0 % (0-5); Neutrophil # 9.75 X10^3/uL (2.7-7.7); Neutrophil % 70.7 % (47-70); Platelet Count 396 K/mm3 (150-450); RBC Distribution Width CV 13.4 % (11.6-14.6); RBC Distribution Width SD 48.2 fl (35.1-43.9); Red Blood Count 4.95 M/mm3 (4.2-5.4); White Blood Count 13.8 K/mm3 (4.4-11.0)
[2021-08-01] MEDS: 0.9% Normal Saline 1,000 ML 125 ML IV (06:40)
[2021-08-01 07:38] VITALS: BP 116/80; PULSE 85; RESP 16; TEMP 36.3; O2SAT 100
--- NOTE | 2021-08-01 08:31 | PN_ITS ---
Subjective Subjective pt seen at bedside doing well. pt reports improvement in how she is feeling- pt would like dc home if possible. pt denies breast pain or masses, reports abdominal pain improved. pt states she is urinating without difficulty. No vaginal pain, still with some odorous discharge but improving. pt reports no CP, SOB, dizziness. states has some diarrhea about 1-2x per day but improved from prior to admission. Pt denies any chills. Objective Data Objective Data Vital Signs: Vital Signs Temp Pulse Resp BP Pulse Ox 97.3 F L 85 16 116/80 100 08/01/21 07:38 08/01/21 07:38 08/01/21 07:38 08/01/21 07:38 08/01/21 07:38 Oxygen Delivery Method Room Air Weight: 77.8 kg Body Mass Index (BMI) 27.6 Intake & Output: Intake and Output for Last 24 Hours 07/30/21 07/31/21 08/01/21 23:59 23:59 23:59 Intake Total 3325.460 / 3325.460 987.095 / 987.095 Output Total 900 / 1150 1050 / 1050 Balance 2425.460 / 2175.460 -62.905 / -62.905 Lab / Micro Data Result Diagrams: 08/01/21 05:46 07/31/21 08:13 Labs: Laboratory Results - last 24 hr 07/31/21 08:13: WBC 17.1 H, RBC 4.42, Hgb 14.6, Hct 42.0, MCV 95.0, MCH 33.0 H, MCHC 34.8, RDW Std Deviation 46.6 H, RDW Coeff of Mikey 13.3, Plt Count 303, MPV 9.5, Immature Gran % (Auto) 1.200 H, Neut % (Auto) 78.0 H, Lymph % (Auto) 12.4 L , [place] % (Auto) 7.7, Eos % (Auto) 0.2, Baso % (Auto) 0.5, Absolute Neuts (auto) 13.4 H, Absolute Lymphs (auto) 2.12, Nucleated RBC % 0 07/31/21 08:13: Sodium 136, Potassium 3.3 L, Chloride 104, Carbon Dioxide 24.0, Anion Gap 8, BUN 10, Creatinine 0.71, Estim Creat Clear Calc 105.50, Est GFR (MDRD) Af Amer 122, Est GFR (MDRD) Non-Af 101, BUN/Creatinine Ratio 14.1, Glucose 100, Calcium 8.6 08/01/21 05:46: WBC 13.8 H, RBC 4.95, Hgb 16.2 H, Hct 47.9 H, MCV 96.8, MCH 32.7 H, MCHC 33.8, RDW Std Deviation 48.2 H, RDW Coeff of Mikey 13.4, Plt Count 396, MPV 9.4, Immature Gran % (Auto) 1.500 H, Neut % (Auto) 70.7 H, Lymph % (Auto) 20.0, [place] % (Auto) 5.2, Eos % (Auto) 2.0, Baso % (Auto) 0.6, Absolute Neuts (auto) 9.8 H, Absolute Lymphs (auto) 2.75, Nucleated RBC % 0 Micro: Microbiology 07/30/21 19:09 Nasal Secretion SARS-CoV-2 Antigen (Rapid) - Final Physical Exam Narrative Breasts: soft, symmetrical, no masses, no erythema. Abd: soft, uterus firm, minimal tenderness to palpation, no masses Const alert, oriented x3 and no apparent distress Assessment & Plan Assessment/Plan (1) Lactating mother: (2) Leukocytosis: QUALIFIERS: Leukocytosis type: unspecified Qualified Code(s): D72.829 - Elevated white blood cell count, unspecified (3) Fever: QUALIFIERS: Fever type: due to other condition Qualified Code(s): R50.81 - Fever presenting with conditions classified elsewhere (4) Acute endometritis: PLAN: HD#1 , acute endometritis 1) WBC trending down 2) Pt reports improvement in symptoms- will dc home 3) afebrile x 24 hrs all other VS wnl 4) will dc home with Augmentin- pt has appt with [facility] this coming week 5) Motrin/Tylenol for pain or fever if worsening symptoms will notify DOC
--- NOTE | 2021-08-01 08:37 | PCM.DC ---
Discharge Instructions Diet Discharge Diet: No restrictions Activity May resume sexual activity in: 6-8 weeks Dressing / Incision Call your doctor if you observe: Fever of 101 or Higher, Inability to urinate, Using more than 1 pad per hour and Uncontrolled pain Follow Up Care Please Follow Up With: Samra Banerjee MD When: 1-2 weeks post and again at 6 weeks post . [phone] Test Results: Test results from this visit will be discussed in further detail at your follow-up appointment, if applicable. Discharge Plan Admission Admit Date/Time: 07/31/21 00:28 Attending Provider: Lori Corrales Primary Care Provider: Alex Beck Discharge Orders/Prescriptions Prescriptions: New acetaminophen [Tylenol] 325 mg Tablet 650 mg PO Q6H PRN PRN (Reason: Fever) Qty: 0 RF: 0 ibuprofen 600 mg Tablet 600 mg PO Q6H PRN PRN (Reason: PAIN 1-10) Qty: 0 RF: 0 amoxicillin-pot clavulanate 875-125 mg tablet 1 tab PO BID Qty: 14 RF: 0 Continued PNV w/o vit A-Fe [id number]-Zn 28-1-66 mg Capsule, Sequential 1 cap PO DAILY RF: 0 Referrals / Follow Up: Alex Beck MD [Primary Care Provider] - Disposition Disposition (needs filled in before D/C Order can be placed): Home, Self Care
--- NOTE | 2021-08-01 08:45 | PCM.DC.BLA ---
Discharge Summary Date of Admission: 07/31/21 Date of Discharge: 08/01/21 Summary: pt admitted for post fever, leukocytosis and likely endometritis, received Gentamycin and Clindamycin- WBC trending down and clinically improved. Pt d/c home on HD#1 in stable condition with Augmentin PO BID x 7 days. Meaningful Use Info Meaningful Use Diagnoses (Choose all that apply): None applicable Discharge Plan Admission Admit Date/Time: 07/31/21 00:28 Attending Provider: Lori Corrales Primary Care Provider: Alex Beck Discharge Orders/Prescriptions Prescriptions: New acetaminophen [Tylenol] 325 mg Tablet 650 mg PO Q6H PRN PRN (Reason: Fever) Qty: 0 RF: 0 ibuprofen 600 mg Tablet 600 mg PO Q6H PRN PRN (Reason: PAIN 1-10) Qty: 0 RF: 0 amoxicillin-pot clavulanate 875-125 mg tablet 1 tab PO BID Qty: 14 RF: 0 Continued PNV w/o vit A-Fe [id number] 28-1-66 mg Capsule, Sequential 1 cap PO DAILY RF: 0 Referrals / Follow Up: Alex Beck MD [Primary Care Provider] - Disposition Disposition (needs filled in before D/C Order can be placed): Home, Self Care
--- NOTE | 2021-08-01 09:30 | CASEMGMT ---
RN TAB Face to Face with patient for initial transition planning/care coordination assessment. RN CM introduced self and role at [facility]. Patient lying in bed, alert and oriented. Patient willing to participate in assessment and is able to answer all questions appropriately. Care providers, pharmacy, and demographics verified. Patient wishes to discharge home, denies need for home health at this time. Patient states she has no further needs or concerns at this time. CM to follow for discharge planning needs that may arise. PCP: Kiran Specialists: Antoni AIR DIRECTOR Preferred Pharmacy: [facility] Insurance: [employer] Prescription Benefit: yes Living Will/HPOA: none LNOK: Living Arrangements: Patient lives with in a single story home with 2 steps to enter the home. Patient states she is independent at home. Transportation: self/ DME/HHC: Patient denies DME or previous HHC Disposition Plan: Patient to discharge home with family support and follow-up plans in place. Kate HERRERA, RN, CM
[2021-08-01 09:33] VITALS: BP 123/87; PULSE 83; RESP 16; TEMP 36.6; O2SAT 96
== END 2021-08-01 12:20 | disposition home or self-care (01) | DRG 776 ==
LOC: ED 23:15 → MS3 07-31 01:49
PROVIDERS: Advanced Practice Midwife; Admitting Provider Obstetrics & Gynecology; Emergency Provider Emergency Medicine; PCP Family Medicine; Visit Provider Obstetrics & Gynecology
DX: O86.12 Endometritis following delivery (principal); O86.4 Pyrexia of unknown origin following delivery
CPT/HCPCS: 36415; 51702; 71045; 74177; 76856; 80048; 81001; 85025; 87426; 99285; J7030; Q9967; A4216

== ENCOUNTER 2024-03-02 07:35 | Inpatient (IN) | payer OTHER, SELFPAY ==
[2024-03-02] VITALS (42 sets, daily range): BP systolic 110–147; BP diastolic 56–91; PULSE 68–100; RESP 14–16; TEMP 36.3–37.4; O2SAT 74–100; BMI 32.4
[2024-03-02] MEDS: Lactated Ringers 1,000 ML 50 ML IV (07:40)
[2024-03-02 08:17] LABS: Absolute Lymphocyte Count 2.42 X10^3/uL (0.83-4.51); Absolute Neutrophil Count 6.9 X10^3/uL (2.0-7.7); Basophil# 0.03 X10^3/uL; Basophil% 0.3 % (0-1); Eosinophil# 0.11 X10^3/uL; Eosinophils% 1.1 % (0-5); Hematocrit 41.6 % (37-47); Hemoglobin 13.9 g/dL (12.0-15.0); Lymphocyte # 2.42 X10^3/ul (0.83-4.51); Lymphocyte % 23.5 % (19-41); Mean Corp Hgb Conc 33.4 g/dL (32-36); Mean Corpuscular Volume 95.6 fL (81-99); Mean Platelet Vol. 10.7 fl (6.2-12.0); Monocyte# 0.74 X10^3/uL; Monocyte% 7.2 % (0-10); NRBC Flagged by Analyzer 0 % (0-5); Neutrophil # 6.93 X10^3/uL (2.7-7.7); Neutrophil % 67.3 % (47-70); Platelet Count 270 K/mm3 (150-450); RBC Distribution Width SD 48.5 fl (35.1-43.9); Red Blood Count 4.35 M/mm3 (4.2-5.4); White Blood Count 10.3 K/mm3 (4.4-11.0)
--- NOTE | 2024-03-02 08:20 | PCM.HP.OB ---
HPI - General General Date of Admission: 03/02/24 Date of Service: 03/02/24 Chief Complaint: Induction of labor HPI Narrative SCOTTY JONES, is a 34 F who presents induction of labor. Previous c/s for breech and successful after. Maternal Data Information Final ERIN: 02/27/24 Gestational age: 40+4 [facility] Medical History 40 weeks gestation of depression Club foot Chronic constipation Home Medications ?Medication ?Instructions ?Recorded ?Last Taken ?Type benzocaine 20 %-menthol 0.5 % 1 spray topical TID PRN PRN 07/25/21 Unknown Rx topical aerosol (Dermoplast (with perineal discomfort #0 grams menthol)) (without vit A)-Fe 1 cap PO DAILY 07/30/21 Unknown History avj-[id number] 28 mg-1 mg-66 mg capsules Lactobacillus acidophilus 10 100 mmu cells PO DAILY constipation 03/02/24 03/01/24 22:00 History billion cell capsule (NewFlora) vit no.95-ferrous 1 tab PO DAILY 03/02/24 03/01/24 22:00 History fumarate 28 mg-folic acid 800 mcg tablet () Allergy/AdvReac Type Severity Reaction Status Date / Time No Known Allergies Allergy Verified 03/02/24 07:38 Surgical History Patient desires vaginal after section () History of knee surgery History of foot surgery History of D&C History of section Hx of breast reduction, elective Social History Smoking Status: Never smoker History 4 Elective abortions Hx Para 3 Spontaneous abortions Hx # Term Pregnancies Ectopic pregnancies Hx # Pregnancies Multiple births # of living children 3 NST FHR Rate Baby A Baseline: 130 Variability:: Moderate Accelerations:: 15 x 15 Decelerations:: None NST Reactive:: Yes FHR Category:: Category I Uterine Activity:: irregular ROS Constitutional Constitutional: Denies fatigue, fever(s) or malaise Eyes Eyes: Denies change in vision ENT HEENT: Denies dizziness or headache(s) Cardiovascular Cardiovascular: Denies chest pain, dyspnea or lightheadedness Respiratory/Chest Respiratory/Chest: Denies cough or dyspnea Gastrointestinal Gastrointestinal: Denies change in bowel habits Genitourinary Genitourinary: Denies burning urination or genital lesions Integumentary Integumentary: Denies rash Neurologic Neurologic: Denies confusion, dizziness, headache(s), numbness or weakness Vital Signs Vital Signs Vital Signs: 03/02/24 07:43 03/02/24 07:43 03/02/24 07:43 Temperature Temperature Source Temporal Pulse Rate 81 Respiratory Rate Blood Pressure 131/88 H BP Systolic 131 BP Diastolic 88 Pulse Ox 03/02/24 07:43 03/02/24 07:43 03/02/24 07:43 Temperature Temperature Source Pulse Rate 80 Respiratory Rate 16 Blood Pressure BP Systolic BP Diastolic Pulse Ox 97 03/02/24 07:43 Temperature 98.4 F Temperature Source Pulse Rate Respiratory Rate Blood Pressure BP Systolic BP Diastolic Pulse Ox Weight Weight: 91.172 kg Body Mass Index (BMI) 32.4 Physical Exam Narrative 2/50/-2 Const alert and no apparent distress General Appearance: cooperative HEENT normocephalic Resp normal respiratory effort Cardio regular rate GI soft to palpation GI Narrative: gravid, nontender, appropriate for gestational age Extremity no calf tenderness General Extremity: edema Skin no wounds Rashes: No rashes noted Psych activity/motor behavior normal Labs Labs Labs: Blood Type A POSITIVE Antibody Screen NEGATIVE Hct 41.6 % (37-47) Hgb 13.9 g/dL (12.0-15.0) Syphilis Total Ab Pending Rhogam given: No Assessment & Plan (1) 40 weeks gestation of : (2) Patient desires vaginal after section (): PLAN: Plan Pitocin and then AROM
[2024-03-02] MEDS: Oxytocin 15 Units/NS 250ml 15 UNITS/250 ML IV.SOLN 2 UNITS IV (08:38)
[2024-03-02 09:10] LABS: Syphilis Antibodies Non-reactive
[2024-03-02] MEDS: Lactated Ringers 1,000 ML 999 ML IV (13:38)
[2024-03-02] MEDS: fentaNYL-bupivacaine (epidural) 100 ML BAG EPIDURAL (14:32)
--- NOTE | 2024-03-02 18:17 | EX.PCM.OBRPT ---
Assessment & Plan (1) , delivered: (2) 40 weeks gestation of : PLAN: Plan Routine Maternal Data Information Final ERIN: 02/27/24 Gestational age: 40+4 Vaginal Delivery Maternal Presentation Maternal Presentation: Elective Induction Maternal Presentation: IOL with hx of previous Type of Induction: Pitocin and Amniotomy Operative Information Date of Procedure: 03/02/24 Pre-Operative Diagnosis: TOLAC Post-Operative Diagnosis: Surgery / Procedure Performed: Spontaneous Vaginal Delivery Type of Anesthesia: Epidural Estimated Blood Loss: 100 cc Time of Delivery: 18:01 Findings Description of Procedure: Patient progressed to complete after Pitocin and AROM. Pushed through one contraction and delivered the head SHARONA followed by the anterior and posterior shoulders without delay. The infant was placed on the maternal abdomen. The cord was clamped and cut after one minute. The placenta was delivered with gentle traction. No lacerations were present. Presentation: Vertex and SHARONA Amniotic Membrane Rupture Type: Spontaneous Amniotic Fluid Description: Clear Placental Delivery Description: Spontaneous Placenta Disposition: [facility] Cord Vessel Description: 3 Vessels Cord Entanglement: None A Gender: Female (1 minute): 8 (5 minute): 9 Delayed Cord Clamping: Yes Post Vaginal Delivery Medications Given After Delivery: IV Pitocin Episiotomy Description: None Laceration: None Complication Complications: None
[2024-03-02] MEDS: Oxytocin 15 Units/NS 250ml 15 UNITS/250 ML IV.SOLN 83 UNITS IV (18:35)
[2024-03-03 04:00] VITALS: BP 131/74; PULSE 95; RESP 16; TEMP 36.3; O2SAT 98
[2024-03-03 04:54] VITALS: BP 131/74; PULSE 73
[2024-03-03 07:36] VITALS: BP 126/83; PULSE 66; RESP 16; TEMP 36.4; O2SAT 96
--- NOTE | 2024-03-03 09:25 | PCM.PN.OB ---
Subjective Subjective Feels good. Pain controlled. Trying to breast feed. Minimal lochia. Ambulating and voiding without difficulty Objective Data Objective Data Vital Signs: Vital Signs Temp Pulse Resp BP Pulse Ox O2 Del Method 97.5 F L 66 16 126/83 H 96 Room Air 03/03/24 07:36 03/03/24 07:36 03/03/24 07:36 03/03/24 07:36 03/03/24 07:36 03/03/24 07:36 Oxygen Delivery Method Room Air Weight: 91.172 kg Body Mass Index (BMI) 32.4 Intake & Output: Intake and Output for Last 24 Hours 03/01/24 03/02/24 03/03/24 23:59 23:59 23:59 Intake Total 2800.00 / 2800.00 Output Total 500 / 500 1100 / 1100 Balance 2300.00 / 2300.00 -1100 / -1100 Lab / Micro Data 03/02/24 07:40 ROS Constitutional Constitutional: Denies fatigue, fever(s) or malaise Eyes Eyes: Denies change in vision ENT HEENT: Denies dizziness or headache(s) Cardiovascular Cardiovascular: Denies chest pain, dyspnea or lightheadedness Respiratory/Chest Respiratory/Chest: Denies cough or dyspnea Gastrointestinal Gastrointestinal: Denies change in bowel habits Genitourinary Genitourinary: Denies burning urination or genital lesions Integumentary Integumentary: Denies rash Neurologic Neurologic: Denies confusion, dizziness, headache(s), numbness or weakness Physical Exam Const alert and no apparent distress Narrative: Fundus firm, below umbilicus. Assessment & Plan (1) , delivered: (2) Lactating mother: PLAN: Plan Routine care. Possible D/C tonight
[2024-03-03 12:39] VITALS: BP 135/75; PULSE 78; RESP 16; TEMP 36.9; O2SAT 96
[2024-03-03 16:15] VITALS: BP 120/88; PULSE 70; RESP 16; TEMP 36.7; O2SAT 95
[2024-03-03 20:28] VITALS: BP 139/74; PULSE 86; RESP 16; TEMP 36.9; O2SAT 99
[2024-03-04 04:15] VITALS: BP 122/75; PULSE 71; RESP 16; TEMP 36; O2SAT 96
--- NOTE | 2024-03-04 07:57 | PCM.PN.OB ---
Subjective Subjective Feels good. Pain controlled. Trying to breast feed. Minimal lochia. Ambulating and voiding without difficulty Objective Data Objective Data Vital Signs: Vital Signs Temp Pulse Resp BP Pulse Ox O2 Del Method 96.8 F L 71 16 122/75 H 96 Room Air 03/04/24 04:15 03/04/24 04:15 03/04/24 04:15 03/04/24 04:15 03/04/24 04:15 03/04/24 04:15 Oxygen Delivery Method Room Air Weight: 91.172 kg Body Mass Index (BMI) 32.4 Intake & Output: Intake and Output for Last 24 Hours 03/02/24 03/03/24 03/04/24 23:59 23:59 23:59 Intake Total 2800.00 / 2800.00 Output Total 500 / 500 1100 / 1100 Balance 2300.00 / 2300.00 -1100 / -1100 Lab / Micro Data 03/02/24 07:40 ROS Constitutional Constitutional: Denies fatigue, fever(s) or malaise Eyes Eyes: Denies change in vision ENT HEENT: Denies dizziness or headache(s) Cardiovascular Cardiovascular: Denies chest pain, dyspnea or lightheadedness Respiratory/Chest Respiratory/Chest: Denies cough or dyspnea Gastrointestinal Gastrointestinal: Denies change in bowel habits Genitourinary Genitourinary: Denies burning urination or genital lesions Integumentary Integumentary: Denies rash Neurologic Neurologic: Denies confusion, dizziness, headache(s), numbness or weakness Physical Exam Const alert and no apparent distress Narrative: Fundus firm, below umbilicus. Assessment & Plan (1) , delivered: (2) Lactating mother: PLAN: Plan Routine care. D/C today
--- NOTE | 2024-03-04 07:57 | PCM.DC.SUM ---
Providers Date of Admission: 03/02/24 Date of Discharge: 03/04/24 Primary Care Physician: Dr. Alex Beck MD Reason For Visit: VAG DELIVERY Diagnosis Discharge Diagnosis (1) , delivered: Status: Acute Code(s): O34.219 - Maternal care for unspecified type scar from previous delivery (2) Lactating mother: Status: Acute Code(s): Z39.1 - Encounter for care and examination of lactating mother Plan Routine care. Possible D/C tonight Medications at Discharge Home Medications benzocaine 20 %-menthol 0.5 % topical aerosol (Dermoplast (with menthol)) 1 spray topical TID PRN PRN perineal discomfort #0 grams 07/25/21 Lactobacillus acidophilus 10 billion cell capsule (NewFlora) 100 mmu cells PO DAILY constipation 03/02/24 vit no.95-ferrous fumarate 28 mg-folic acid 800 mcg tablet () 1 tab PO DAILY 03/02/24 Hospital Course Operations None Procedures None Summary of Care Provided Minutes Spent on Discharge: 22 Hospital Course: Induction of labor with Pitocin and AROM. Successful without complication. No laceration. Breast and bottle feeding. No complications Physical Exam Const alert and no apparent distress Narrative: Fundus firm, below umbilicus. Weight / BMI Weight Weight: 91.172 kg Body Mass Index (BMI) 32.4 ABG / Lab / Microbiology Data 03/02/24 07:40 D/C Instructions May resume sexual activity in: 6 weeks Please Follow Up With: Irene Flannery MD When: Follow up with our office in 1-2 and 6 weeks or as needed. [phone] Meaningful Use Info Meaningful Use Meaningful Use Diagnoses (Choose all that apply): None applicable Ischemic Stroke Statin Dosing Therapy Reference: STATIN DOSE THERAPY REFERENCE: * Patients > 75 years receive moderate or high dose statin therapy. * Patients 75 years or YOUNGER should receive HIGH intensity statin dose unless contraindicated. You will be required to document reason for non-treatment if statin daily dose does not meet guidelines. HIGH DOSE STATIN THERAPY DAILY Atorvastatin > than or = to 40 mg Rosuvastatin > than or = to 20 mg Amlodipine + Atorvastatin > than or = to 2.5/40 mg Ezetimibe + Simvastatin 10/80 mg Simvastatin 80mg Discharge Plan Admission Admit Date/Time: 03/02/24 07:35 Primary Reason for Your Visit: Labor and delivery Attending Provider: Edelmira Umanzor Primary Care Provider: Alex Beck Discharge Orders/Prescriptions Prescriptions: Continued Dermoplast (with menthol) 20-0.5 % Aerosol 1 spray topical TID PRN PRN (Reason: perineal discomfort) Qty: 0 0RF Protocol: *Topical Application Instructions APPLICATION INSTRUCTIONS: 1 spray 3 times a day as needed for perineal discomfort PNV cmb#95-ferrous fumarate-FA [] 28 mg iron- 800 mcg tablet 1 tab PO DAILY NewFlora 10 billion cell capsule 100 mmu cells PO DAILY Discontinued PNV w/o vit A-Fe [id number]-MY-[id number]-Zn 28-1-66 mg Capsule, Sequential 1 cap PO DAILY Referrals / Follow Up: Alex Beck MD [Primary Care Provider] - Disposition Disposition (needs filled in before D/C Order can be placed): Home, Self Care
[2024-03-04 07:59] VITALS: BP 127/76; PULSE 73; RESP 16; TEMP 36.5; O2SAT 97
--- NOTE | 2024-03-04 12:10 | CASEMGMT ---
Social Work Assessment Labor and Delivery Unit Patient Address: [address] [address]?? [place] [address] Phone number: Date of Referral: 03/02/2024 Time of Referral: ?20:42 Referred By: Dr. Edelmira Umanzor Date of Intervention: 03/04/2024 Time of Intervention: 12:08 Reason for Referral: Mental Health History obtained from: Medical records, mother of baby (MOB), Nina Mckenzie, and father of baby (FOB), Paul Mckenzie, age 35.? Household composition: MOB, FOB, 9 year old daughter Leti, 8 year old son Arnie, 2 and a half year old daughter Denisha and daughter Quynh, d.o.b 03/02/2024. MOB and FOB denied any other children. Patient's parent/guardian status: MOB and FOB are and have been together for 16 years and for 14 years.? Both MOB and FOB are actively involved and will be providing care for baby. MOB denied any concerns with domestic violence and described a positive and supportive relationship with her Medical History: ?MOB has had 6 pregnancies and 4 births.? MOB has had 2 spontaneous abortions. MOB received care [facility] beginning at 9 weeks and 2 days. No gaps in care were identified.? [place] baby?s weight: 6 pounds, 13 ounces. Apgars: 8 and 9. Baby?s senior systems administrator was identified as Dr. Alex Beck. MOB was induced and denied any related complications. Educational Status: MOB and FOB denied any issues or concerns with reading or writing. MOB and FOB are both high school graduates. Financial Status: MOB and FOB reported their income is sufficient to meet the needs of their family at this time. MOB is currently a stay at home mom and FOAlejandro is currently employed multimedia project manager at [employer]. FOB doesn?t have any planned paternity leave however indicated that he can take off of work whenever he needs to. Infant Supplies: MOB and FOB reported they have all the supplies they need for baby at this time including but not limited to: Car Seat, bassinet, crib, diapers, bottles, formula (combination feeding) and clothing. XANDER also reported she has a breast pump. Childcare/Caregiver(s):? MOB reported she is going to be the primary caregiver, the FOB will also be a caregiver when not working and baby?s MGM who lives close by will also help as well when needed. Transportation:? MOB and FOAlejandro reported they are both licensed drivers and have a reliable vehicle to take baby to and from all medical appointments. No transportation issues identified. Programs/Agencies Involved: MOB and MAGED denied any current programs or agencies involved at this time. MOB and FOAlejandro denied needing any information on JFS, WIC, Help Me Grow or counseling. XANDER reported she used to see a counselor once a month for about 6 months who was not connected with an agency however hasn?t been involved or felt the need to be involved with any counseling since then. (2020). MOB and MAGED denied any previous or current legal involvement. Children Services/Legal Issues:? Denied. Behavioral Health Issues: ??Mental Health History: ?MOB and MAGED denied any mental health diagnoses. XANDER reported that she experienced mild PPD with her other children and described that time as just feeling ?anxious?. MOB denied any current depression or anxiety and denied being on any medication.? Previous counseling to due to MOB having a club foot and feeling like she didn?t fit in. MOB denied feeling suicidal. ???Substance Use History:?? MOB and FOB denied any and all drug and alcohol use and/or abuse. ???Family History: XANDER denied any family history of mental health issues or drug or alcohol abuse.?? Drug Screens: ?None obtained at the time of this admission. Family/Social Stressors: ?MOB and FOAlejandro denied any current family or social stressors. Support Systems: Ample.? XANDER identified her biggest supports as the FOB and MOB?s mother and MOB?s sister. MOB?s sister currently resides in [place]. MOB?s father is also as support as well as FOB?s mother and sister who reside in [place]. ?MOB and FOB also identified their mu-ism as a support. Depression/Shaken Baby/Safe Sleeping: plugger worker provided verbal education on PPD, Safe Sleeping and Shaken Baby.? Parents verbalized an understanding. ? ASSESSMENT:? MOB and FOB provided consent to social work visit. Upon arrival, MOB was in the bathroom getting dressed and the FOB was standing in the room holding baby.? Both MOB and FOB provided consent to the social work visit. FOB held baby throughout the entire visit with the exception of when social human services assistants asked FOB to leave so social human services assistants could talk to the MOB alone which both were agreeable to, at which point MOB held .? Both MOB were observed to have positive interaction with each other and with baby.? Both MOB and FOB appeared to be very attached and bonded to baby and were very easy with baby, nurturing and attentive to baby throughout the visit. Baby was wrapped in a warm blanket.? plugger worker did speak with MOM alone and MOB reported she feels safe in her own home and denied any health or safety issues, domestic violence, mental health concerns or drug or alcohol abuse. Safe Plan of Care for infant related to substance use: N/A; not needed. ? PLAN:? Baby to be discharged home when ready. ?No other services requested or indicated. Edelmira Zepeda, [employer] BLOCKMAKER, USED CAR LOT ATTENDANT
--- NOTE | 2024-03-07 10:28 | NURSING ---
Corrected Delivery Record for successful .
== END 2024-03-04 13:20 | disposition home or self-care (01) | DRG 807 ==
PROVIDERS: Admitting Provider Obstetrics & Gynecology; PCP Family Medicine; Referring Provider Obstetrics & Gynecology; Visit Provider Obstetrics & Gynecology
DX: O34.219 Maternal care for unspecified type scar from previous cesarean delivery (principal); Z37.0 Single live birth; Z3A.40 40 weeks gestation of pregnancy; Z87.59 Personal history of other complications of pregnancy, childbirth and the puerperium
CPT/HCPCS: 59025; 59050; 85025; 86780; 86850; 86900; 86901; 99221; J7120; G0378